=== PATIENT | male | born 1975 | race Caucasian/White ===

== ENCOUNTER 2017-06-17 09:12 | Emergency (ER) | payer OTHER ==
[2017-06-17] MEDS: CEPHALEXIN 500 MG CAP PO (10:06)
[2017-06-17] MEDS: LIDOCAINE 1%/EPI 30 ML INJ INJ (10:06)
[2017-06-17] MEDS: KETOROLAC 30 MG INJ IM (10:06)
[2017-06-17] MEDS: TRIMETHOPRIM/SULFAMETHOX (DS) TAB PO (10:06)
== END 2017-06-17 12:49 | disposition home or self-care (01) ==
LOC: E/R 09:12
DX: L02.211 Cutaneous abscess of abdominal wall (principal); Z87.891 Personal history of nicotine dependence
CPT/HCPCS: 10061; 96372; 99284-25